=== PATIENT | male | born 1955 | race African-American/Black ===

== ENCOUNTER 2019-07-21 23:18 | Emergency (ER) | payer MEDICAID ==
[~2019-07-21] VITALS: Ht 182.9 cm; Wt 84.0 kg
[2019-07-21] MEDS ORDERED: HYDROCODONE/ACETAMINOPHEN 10/325MG TABLET PO ONE (23:45)
[2019-07-22] MEDS ORDERED: PROPOFOL 200MG/20ML VIAL IV ONE (00:30)
[2019-07-22] MEDS ORDERED: KETAMINE HCL 50 MG/ML 10ML IM ONE (00:30)
[2019-07-22 01:49] VITALS: BP 115/82
== END 2019-07-22 01:51 | disposition home or self-care (01) ==
LOC: ER 23:18
DX: S43.014A Anterior dislocation of right humerus, initial encounter (principal); I10 Essential (primary) hypertension; J45.909 Unspecified asthma, uncomplicated; Z87.81 Personal history of (healed) traumatic fracture; Z98.890 Other specified postprocedural states; V19.88XA Pedal cyclist (driver) (passenger) injured in other specified transport accidents, initial encounter; Y93.89 Activity, other specified; Y92.488 Other paved roadways as the place of occurrence of the external cause
CPT/HCPCS: 23650; 73030; 99152; 99285; J2704; J3490

== ENCOUNTER 2019-12-08 15:04 | Emergency (ER) | payer MEDICARE, MEDICAID ==
[~2019-12-08] VITALS: Ht 170.2 cm; Wt 73.0 kg
[2019-12-08] MEDS ORDERED: IBUPROFEN 600MG TABLET PO ONE (16:00)
[2019-12-08] MEDS ORDERED: CYCLOBENZAPRINE 10MG TABLET PO ONE (16:00)
[2019-12-08 17:53] VITALS: BP 175/100
== END 2019-12-08 17:55 | disposition home or self-care (01) ==
LOC: ER 15:04
DX: M54.5 Low back pain (principal); M79.604 Pain in right leg; M25.552 Pain in left hip; J45.909 Unspecified asthma, uncomplicated; I10 Essential (primary) hypertension
CPT/HCPCS: 72100; 72170; 73502; 73552; 99284

== ENCOUNTER 2024-06-26 08:49 | Emergency (ER) | payer MEDICAID, MEDICARE ==
[~2024-06-26] VITALS: Ht 172.7 cm; Wt 80.0 kg
[2024-06-26] MEDS: LORAZEPAM 2MG/ML INJ IM STA (09:29)
[2024-06-26] MEDS: HALOPERIDOL LACTATE 5MG/ML VIAL IM STA (09:30)
[2024-06-26] MEDS: DIPHENHYDRAMINE 50MG/ML VIAL IM STA (09:40)
[2024-06-26 10:09] LABS: BASOPHILS % 0.4 % (0.0-2.0); EOSINOPHILS % 0.5 % (0.0-5.0); HEMATOCRIT. 44.8 % (42.0-52.0); LYMPHOCYTES % 10.2 % (20.0-50.0); MEAN CORPUSCULAR HGB CONC 31.2 g/dL (31.0-37.0); MEAN CORPUSCULAR VOLUME 83.4 fL (80.0-94.0); MEAN PLATELET VOLUME 8.3 fl (7.4-10.4); MONOCYTES % 8.6 % (2.0-8.0); NEUTROPHILS % 80.3 % (40.0-76.0); PLATELET 206 x1000/uL (130-400); RED BLOOD CELL COUNT 5.37 mill/uL (4.7-6.1); RED CELL DISTRIBUTION WIDTH 16.3 % (11.6-14.6); WHITE BLOOD COUNT 6.6 x1000/uL (4.5-11.0)
[2024-06-26 10:17] LABS: CALCIUM 9.5 mg/dL (8.7-10.4); CARBON DIOXIDE 26 mEq/L (21-32); CHLORIDE 100 mEq/L (98-107); POTASSIUM 3.7 mEq/L (3.5-5.1); SODIUM 137 mEq/L (136-145)
[2024-06-26 10:21] LABS: PROTHROMBIN TIME 10.5 sec (9.6-11.0)
[2024-06-26 10:23] LABS: GLUCOSE 152 mg/dL (70-105); UREA NITROGEN BLOOD 9 mg/dL (9-23)
[2024-06-26 10:40] LABS: ETHANOL BLOOD < 10 mg/dL (<10)
[2024-06-26 11:00] VITALS: O2SAT 98
[2024-06-26] MEDS ORDERED: NALO4SPR BOTHNSTRLS (14:42)
[2024-06-26 20:30] VITALS: BP 155/89; PULSE 75; RESP 20; TEMP 36.8; O2SAT 100
== END 2024-06-26 20:30 | disposition home or self-care (01) ==
LOC: ER 08:49
DX: T40.601A Poisoning by unspecified narcotics, accidental (unintentional), initial encounter (principal); J45.909 Unspecified asthma, uncomplicated; I10 Essential (primary) hypertension; R51.9 Headache, unspecified; Z79.899 Other long term (current) drug therapy; Y92.9 Unspecified place or not applicable
CPT/HCPCS: 80048; 80320; 85025; 85610; 36415; 70450; 96372; 99291; J1200; J1630; J2060; Z7610; G0480